=== PATIENT | female | born 1995 | race Two or more races ===

== ENCOUNTER 2017-09-27 21:29 | Emergency (ER) | payer SELFPAY ==
[~2017-09-27] VITALS: Ht 152.4 cm; Wt 56.7 kg
[2017-09-27 21:41] VITALS: BP 141/102
== END 2017-09-27 22:49 | disposition left against medical advice (07) ==
LOC: ER 21:31
DX: Z53.21 Procedure and treatment not carried out due to patient leaving prior to being seen by health care provider (principal)
CPT/HCPCS: A4606; Z7610

== ENCOUNTER 2025-03-28 06:39 | Emergency (ER) | payer BC ==
[~2025-03-28] VITALS: Ht 167.6 cm; Wt 88.5 kg
[2025-03-28] MEDS ORDERED: KETOROLAC TROMETHAMINE 15 MG/ML VIAL ONE (08:11)
[2025-03-28] MEDS ORDERED: LIDOCAINE 5% (PATCH) 1 EA PATCH TP ONE (08:11)
[2025-03-28] MEDS: LIDOCAINE 5% (PATCH) 1 EA PATCH TP STA (08:18)
[2025-03-28] MEDS: KETOROLAC TROMETHAMINE 15 MG/ML VIAL IM ONE (08:18)
[2025-03-28] MEDS ORDERED: TDAP [DIPH/PERTUSSIS/TET] 0.5 ML VIAL IM ONE (08:23)
[2025-03-28] MEDS ORDERED: LIDO30AD10 TP (08:28)
[2025-03-28] MEDS: TDAP [DIPH/PERTUSSIS/TET] 0.5 ML VIAL IM ONE (08:28)
[2025-03-28] MEDS ORDERED: IBUP-1955 PO (08:28)
[2025-03-28] MEDS: BACI/NEOM/POLY B OINT PKT 1 UDPKT PACKET TP ONE (08:29)
[2025-03-28 08:39] VITALS: BP 120/66; TEMP 98; O2SAT 96
== END 2025-03-28 08:39 | disposition home or self-care (01) ==
LOC: ER 06:51
DX: S20.212A Contusion of left front wall of thorax, initial encounter (principal); S50.02XA Contusion of left elbow, initial encounter; S80.02XA Contusion of left knee, initial encounter; S09.8XXA Other specified injuries of head, initial encounter; F10.90 Alcohol use, unspecified, uncomplicated; V19.9XXA Pedal cyclist (driver) (passenger) injured in unspecified traffic accident, initial encounter; Y93.55 Activity, bike riding; Y92.488 Other paved roadways as the place of occurrence of the external cause; Y99.8 Other external cause status; Y90.9 Presence of alcohol in blood, level not specified
CPT/HCPCS: 99284; 96372; 90471; 90715; 73080; 71100; J1885